=== PATIENT | male | born 1960 | race Caucasian/White ===

== ENCOUNTER 2021-02-07 07:56 | Day surgery (SDC) | payer OTHER ==
[~2021-02-07] VITALS: Ht 188 cm; Wt 104.8 kg
[~2021-02-07 07:56] MED LIST: ASPI81CH PO; ATOR40TA PO; Amlodipine Bes2.5 MG PO; BUPR150ER PO; CYCL10 PO; METO50 PO; SERT100 PO; TRAZ150T57 PO
--- NOTE | 2021-02-07 08:19 | NUR ---
Ambulatory in Day Surgery History, Chart, Medications and Allergies reviewed before start of procedure. Lungs clear T/O to Auscultation. Patient confirms NPO status and agrees with scheduled surgery. Pre-Op teaching done. Pt verbalizes understanding.
--- NOTE | 2021-02-07 13:49 | NUR ---
PATIENT SBA UP TO BR X 2, VOIDED FOR 550ML TOTAL, STEADY ON FEET. TAKING LUNCH W/O C/O. VSS, CONT TO MONITOR.
--- NOTE | 2021-02-07 16:23 | NUR ---
SHIFT SUMMARY PT A&OX4, VSS, S/P ALBARO LAP SPLENIC CYST REMOVAL, 4 LAP SITES DRY/INTACT. DENIES PAIN AT THIS TIME. DANIEL PO INTAKE. VOIDING WELL, URINAL AT BEDSIDE. WILL REPORT TO ONCOMING NOC RN.
[2021-02-08] MEDS ORDERED: HYDR1TAB94 PO (09:38)
--- NOTE | 2021-02-08 11:36 | NUR ---
DISCHARGE SUMMARY PT A&OX4, VSS, WALKED OFF FLOOR (DECLINING WC), WITH ALL PERSONAL POSSESSIONS, TO GO HOME WITH BROTHER IN LAW, INCLUDING DC PACKET AND 1 NORCO SCRIPT. DC INS PROVIDED. PT REP UNDERSTANDING THOSE INSTRUCTIONS INCLUDING STERISTRIPS, OK TO SHOWER, FU WITH SURGEON AND SCHEDULE COLONOSCOPY. IV DC'D X2.
== END 2021-02-08 10:50 | disposition home or self-care (01) ==
LOC: ORSCMMR 07:56 → PRE IP 09:15 → SURS 12:43 → ORSCMMR 02-08 10:50 → SURS 02-08 10:50
PROVIDERS: Surgery
PROC: 07BP4ZZ Excision of Spleen, Percutaneous Endoscopic Approach (ICD-10-PCS; principal; 2021-02-07 09:15)
DX: D73.4 Cyst of spleen (principal); I10 Essential (primary) hypertension; F41.8 Other specified anxiety disorders; F43.10 Post-traumatic stress disorder, unspecified; Z79.82 Long term (current) use of aspirin; Z79.899 Other long term (current) drug therapy; Z87.891 Personal history of nicotine dependence
CPT/HCPCS: 86850; 86900; 86901; 88304; A9270; J0690; J1100; J1885; J2250; J2370; J2405; J2704; J3010; J7120

== ENCOUNTER → 2021-06-16 | Outpatient (CLI) | payer OTHER ==
[~2021-06-16] MED LIST changes: +HYDR1TAB94 PO
[2021-06-18 17:38] LABS: Protein, Urine Quantitative 7.6 mg/dL (0.0-11.9)
[2021-06-18 17:40] LABS: Microalbumin, Urine Quant. 7.2 mg/L (0.000-20.000)
== END | disposition home or self-care (01) ==
LOC: LAB SHORT 10:00 → LAB FUT 06-14 13:55
PROVIDERS: Internal Medicine Nephrology
DX: N18.2 Chronic kidney disease, stage 2 (mild) (principal); D63.1 Anemia in chronic kidney disease; N25.81 Secondary hyperparathyroidism of renal origin; E55.9 Vitamin D deficiency, unspecified; E78.00 Pure hypercholesterolemia, unspecified; R76.9 Abnormal immunological finding in serum, unspecified; R94.5 Abnormal results of liver function studies; R94.6 Abnormal results of thyroid function studies
CPT/HCPCS: 81050; 82043; 84156; 84300

== ENCOUNTER 2021-06-28 08:00 | Day surgery (SDC) | payer OTHER ==
[~2021-06-28] VITALS: Ht 188 cm; Wt 101.0 kg
--- NOTE | 2021-06-28 12:02 | NUR ---
PATIENT RETURNED FROM THE [facility] VIA RECLINER, PLACED ON THE MONITOR, CALL LIGHT IN REACH, TR BAND IN PLACE TO THE RIGHT RADIAL. PLEATH GOOD, NO BLEEDING, NO HEMOTOMA.
[2021-06-28] MEDS ORDERED: CLOP75 PO (12:23)
--- NOTE | 2021-06-28 12:33 | NUR ---
DISCHARGE INSTRUCTIONS GIVEN WITH VERBAL AND WRITTEN UNDERSTANDING. AMBULATED IN [facility]. TOLERATED WELL. NO BLEEDING AT SITE. DRESSING FOR DISCHARGE.
--- NOTE | 2021-06-28 13:25 | NUR ---
BEGAN REMOVEDING AIR FROM THE TR BAND TO THE RIGHT RADIAL. NO BLEEDING NOTED. NO HEMATOMA NOTED.
--- NOTE | 2021-06-28 13:42 | NUR ---
TR BAND FLAT, ALL AIR REMOVED. NO BLEEDING, NO HEMATOMA NOTED. NO PAIN NOTED FROM THE PATIENT. VVS.
--- NOTE | 2021-06-28 14:05 | NUR ---
DISCHARGE REVIEWED WITH PT, VERBALIZES UNDERSTANDING. TR BAND REMOVED FROM R RADIAL SITE, AREA CLEANSED AND CLOTH DOT DRESSING PLACED. PT OFFERED ARM SLING, BUT REFUSES. SALINE LOCK REMOVED WITH CATHETER INTACT. PT TO PRIVATE VEHICLE PER W/C.
== END 2021-06-28 14:05 | disposition home or self-care (01) ==
LOC: MHTC 08:00
DX: I25.10 Atherosclerotic heart disease of native coronary artery without angina pectoris (principal); R94.39 Abnormal result of other cardiovascular function study; I25.2 Old myocardial infarction; I10 Essential (primary) hypertension; Z95.5 Presence of coronary angioplasty implant and graft; Z87.891 Personal history of nicotine dependence; Z79.82 Long term (current) use of aspirin
CPT/HCPCS: 85347; 93005; 93010; 93454; 93571; 99152; 99153; C1769; C1887; C1894; J0461; J1644; J2250; J3010; J7030; J7050; Q9967

== ENCOUNTER → 2021-11-19 | Outpatient (CLI) | payer MEDICARE, OTHER ==
[~2021-11-19] MED LIST changes: +CLOP75 PO
[2021-11-20 16:33] LABS: Creatinine Urine 95.2 mg/dL (27.00-270.00); Protein, Urine Quantitative 7.7 mg/dL (0.0-11.9)
[2021-11-20 16:35] LABS: Microalbumin, Urine Quant. 6.76 mg/L (0.000-20.000)
== END | disposition home or self-care (01) ==
LOC: LAB SHORT 05:30 → LAB FUT 11-15 15:25
PROVIDERS: Internal Medicine Nephrology
DX: N18.30 Chronic kidney disease, stage 3 unspecified (principal); D63.1 Anemia in chronic kidney disease; N13.30 Unspecified hydronephrosis; R76.9 Abnormal immunological finding in serum, unspecified; R94.5 Abnormal results of liver function studies; R94.6 Abnormal results of thyroid function studies
CPT/HCPCS: 81050; 82043; 82570; 84156

== ENCOUNTER → 2022-11-29 | Outpatient (CLI) | payer MEDICARE, OTHER ==
[2022-11-29 17:27] LABS: BASOPHILS ABSOLUTE AUTO 0.08 K/mm3 (0.00-0.23); BASOPHILS PERCENT AUTO 1 % (0-2); EOSINOPHILS PERCENT AUTO 2 % (0-6); Hematocrit 42.5 % (37.0-53.0); Hemoglobin 14.7 g/dL (13.5-17.5); IMMATURE GRAN ABSOLUTE AUTO 0.02 K/mm3 (0.00-0.10); IMMATURE GRAN PERCENT AUTO 0 % (0-1); LYMPHOCYTES ABSOLUTE AUTO 2.96 K/mm3 (0.84-5.20); LYMPHOCYTES PERCENT AUTO 46 % (21-46); MONOCYTES ABSOLUTE AUTO 0.56 K/mm3 (0.16-1.47); MONOCYTES PERCENT AUTO 9 % (4-13); Mean Corpuscular HGB 27.6 pg (26.0-34.0); Mean Corpuscular HGB Conc 34.6 g/dL (31.5-36.5); Mean Corpuscular Volume 80 fL (80-100); Mean Platelet Volume 10.2 fL (9.1-12.4); NEUTROPHILS ABSOLUTE AUTO 2.72 K/mm3 (1.96-9.15); NEUTROPHILS PERCENT AUTO 42 % (41-73); Platelet Count 190 K/mm3 (150-400); RDW Coefficient Variation 14.4 % (11.7-14.2); RDW Standard Deviation 41.1 fL (35.1-46.3); Red Blood Cell Count 5.33 M/mm3 (4.30-5.90); White Blood Cell Count 6.44 K/mm3 (4.00-11.30)
[2022-11-29 17:35] LABS: Albumin, Blood 3.9 g/dL (3.4-5.0); Bilirubin, Total 1.1 mg/dL (0.1-1.0); Bun/Creatinine Ratio 8.8 (12.0-20.0); Calcium, Blood 9.5 mg/dL (8.5-10.1); Creatinine, Blood 1.47 mg/dL (0.60-1.20); Globulin, Blood 3.8 g/dL (2.2-4.0); Potassium, Blood 3.6 mmol/L (3.5-5.5); Total Protein, Blood 7.7 g/dL (6.4-8.2)
== END | disposition home or self-care (01) ==
LOC: LAB SHORT 17:19 → LAB 17:19
PROVIDERS: Chiropractor
DX: R07.89 Other chest pain (principal)
CPT/HCPCS: 80053; 84484; 85025

== ENCOUNTER 2023-08-19 07:26 | Day surgery (SDC) | payer MEDICARE, OTHER ==
[2023-08-19] VITALS (26 sets, daily range): BP systolic 145–228; BP diastolic 83–143
[~2023-08-19] VITALS: Ht 188 cm; Wt 107.0 kg
[~2023-08-19 07:26] MED LIST changes: +GABA300 PO; +LOSA25; +LOSA25 PO; +Lactated Ringer's 1,000 ML IV SCH; +OMEP20ER PO; +PANT40 PO; +TAMS.4ER PO
[2023-08-19] MEDS ORDERED: propofoL 20 ML IV ONE ×2 (08:37→09:08)
--- NOTE | 2023-08-19 08:49 | NUR ---
08/19/23 0849 Kory Bennett HISTORY, CHART, MEDICATIONS AND ALLERGIES REVIEWED BEFORE START OF PROCEDURE. PATIENT CONFIRMS NPO STATUS AND AGREES WITH SCHEDULED PROCEDURE. 3-LEAD EKG REVIEWED WITH PHYSICIAN PRIOR TO START OF PROCEDURE. MONITOR INTACT WITH CONTINUOUS PULSE OXIMETRY,CAPNOGRAPHY, 3-LEAD EKG, INTERMITTENT BP. SUPPLEMENTAL O2 TO BE TITRATED THROUGHOUT PROCEDURE TO MAINTAIN O2 SATURATION ABOVE 90%. PATIENT DETERMINED TO BE ASA APPROPRIATE FOR PROPOFOL SEDATION PRIOR TO START OF PROCEDURE BY DR. VEGA.
[2023-08-19] MEDS ORDERED: Midazolam HCl 1MG / ML 2ML Vial ONE (08:59)
--- NOTE | 2023-08-19 09:45 | NUR ---
WARM BLANKET GIVEN TO PUT ON ABD.
--- NOTE | 2023-08-19 09:50 | NUR ---
PO FLUIDS GIVEN.
--- NOTE | 2023-08-19 09:59 | NUR ---
PT TOLERATING PO FLUDIS WELL. PT STATES WARM BLANKET SEEMS TO BE HELPING REDUCE HIS ABD PAIN.
--- NOTE | 2023-08-19 10:13 | NUR ---
Discharge instructions reviewed with patient. Patient verbalizes understanding. Copy given to patient to take home. Patient States Post-Procedure ride home has been arranged.
--- NOTE | 2023-08-19 10:27 | NUR ---
Discharge instructions reviewed with patient. Patient verbalizes understanding. Copy given to patient to take home. PT UP TO GET DRESSED, BELCHED AIR. PT REPORT 4/10 PAIN NOW, ENCOURAGED PT TO DRINK WARM FLUIDS AND LIGHT MOVEMENT TO HELP AIR PASS THROUGH RECTUM. Discharged via wheelchair to private car for ride home.
== END 2023-08-19 10:31 | disposition home or self-care (01) ==
LOC: ORSCMMR 07:26 → ORD 08:30 → ORSCMMR 08:30
PROVIDERS: Internal Medicine Gastroenterology
PROC: 0DBN8ZX Excision of Sigmoid Colon, Via Natural or Artificial Opening Endoscopic, Diagnostic (ICD-10-PCS; principal; 2023-08-19 08:30)
PROC: 0DBK8ZX Excision of Ascending Colon, Via Natural or Artificial Opening Endoscopic, Diagnostic (ICD-10-PCS; principal; 2023-08-19 08:30)
PROC: 0DBL8ZX Excision of Transverse Colon, Via Natural or Artificial Opening Endoscopic, Diagnostic (ICD-10-PCS; principal; 2023-08-19 08:30)
DX: Z12.11 Encounter for screening for malignant neoplasm of colon (principal); R19.5 Other fecal abnormalities; D12.3 Benign neoplasm of transverse colon; D12.2 Benign neoplasm of ascending colon; D12.5 Benign neoplasm of sigmoid colon; K57.30 Diverticulosis of large intestine without perforation or abscess without bleeding; I25.10 Atherosclerotic heart disease of native coronary artery without angina pectoris; I25.2 Old myocardial infarction; N40.0 Benign prostatic hyperplasia without lower urinary tract symptoms; Z79.899 Other long term (current) drug therapy; Z87.891 Personal history of nicotine dependence; Z79.82 Long term (current) use of aspirin
CPT/HCPCS: 88305; J2250; J2704; J7120

== ENCOUNTER → 2024-01-23 | Outpatient (CLI) | payer MEDICARE ==
[~2024-01-23] MED LIST changes: -Lactated Ringer's 1,000 ML IV SCH
[2024-01-23 19:16] LABS: Bun/Creatinine Ratio 9.4 (12.0-20.0); Calcium, Blood 8.7 mg/dL (8.5-10.1); Creatinine, Blood 1.27 mg/dL (0.60-1.20); Potassium, Blood 3.9 mmol/L (3.5-5.5)
== END ==
LOC: LAB 16:43 → LAB SHORT 16:43
PROVIDERS: Family Medicine
DX: E11.9 Type 2 diabetes mellitus without complications (principal)
CPT/HCPCS: 80048

== ENCOUNTER → 2024-02-24 | Outpatient (CLI) | payer MEDICARE ==
[2024-02-24 14:32] LABS: BASOPHILS ABSOLUTE AUTO 0.09 K/mm3 (0.00-0.23); BASOPHILS PERCENT AUTO 1 % (0-2); EOSINOPHILS ABSOLUTE AUTO 0.03 K/mm3 (0.00-0.68); EOSINOPHILS PERCENT AUTO 0 % (0-6); Hematocrit 47.5 % (37.0-53.0); Hemoglobin 16.4 g/dL (13.5-17.5); IMMATURE GRAN ABSOLUTE AUTO 0.05 K/mm3 (0.00-0.10); IMMATURE GRAN PERCENT AUTO 1 % (0-1); LYMPHOCYTES ABSOLUTE AUTO 2.99 K/mm3 (0.84-5.20); LYMPHOCYTES PERCENT AUTO 31 % (21-46); MONOCYTES ABSOLUTE AUTO 0.87 K/mm3 (0.16-1.47); MONOCYTES PERCENT AUTO 9 % (4-13); Mean Corpuscular HGB 26.9 pg (26.0-34.0); Mean Corpuscular HGB Conc 34.5 g/dL (31.5-36.5); Mean Corpuscular Volume 78 fL (80-100); Mean Platelet Volume 9.8 fL (9.1-12.4); NEUTROPHILS ABSOLUTE AUTO 5.51 K/mm3 (1.96-9.15); NEUTROPHILS PERCENT AUTO 58 % (41-73); Platelet Count 202 K/mm3 (150-400); RDW Coefficient Variation 14.6 % (11.7-14.2); RDW Standard Deviation 40.1 fL (35.1-46.3); Red Blood Cell Count 6.09 M/mm3 (4.30-5.90); White Blood Cell Count 9.54 K/mm3 (4.00-11.30)
[2024-02-24 14:41] LABS: Albumin, Blood 4.5 g/dL (3.4-5.0); Bilirubin, Total 1.6 mg/dL (0.1-1.0); Calcium, Blood 9.8 mg/dL (8.5-10.1); Creatinine, Blood 1.85 mg/dL (0.60-1.20); Globulin, Blood 4.3 g/dL (2.2-4.0); Potassium, Blood 3.9 mmol/L (3.5-5.5); Total Protein, Blood 8.8 g/dL (6.4-8.2)
== END | disposition home or self-care (01) ==
LOC: LAB SHORT 14:25 → LAB 14:25
PROVIDERS: Family Medicine
DX: R10.84 Generalized abdominal pain (principal)
CPT/HCPCS: 80053; 83690; 85025

== ENCOUNTER 2024-09-23 07:56 | Day surgery (SDC) | payer MEDICARE ==
[2024-09-23] VITALS (32 sets, daily range): BP systolic 115–179; BP diastolic 72–152
[~2024-09-23] VITALS: Ht 188 cm; Wt 96.0 kg
[~2024-09-23 07:56] MED LIST changes: +Lactated Ringer's 1,000 ML IV SCH
[2024-09-23] MEDS ORDERED: Ondansetron HCl 2 MG / ML 2ML Vial IV ONE (08:45)
--- NOTE | 2024-09-23 08:54 | NUR ---
0815 PT ARRIVED TO [facility] W[facility] BOTTLE IN HAND. PT STATES HE DRANK APPROX [address] VEGA NOTIFIOED PT DELAYED FOR 2 HRS NOW PER NPO GUIDLINES.
[2024-09-23] MEDS ORDERED: propofoL 40 ML IV ONE (09:57)
[2024-09-23] MEDS ORDERED: Midazolam HCl 1MG / ML 2ML Vial ONE ×2 (09:58→10:34)
--- NOTE | 2024-09-23 10:03 | NUR ---
09/23/24 Steve3 Faith Parry CONFIRMED AND REVIEWED H&P, MEDCICATIONS, ALLERGIES, MEDICAL HISTORY, RESPIRATORY HISTORY, VITAL SIGNS, 3-LEAD EKG, CONSENTS, AND PHYSICIAN ORDERS. PATIENT CONFIRMS NPO STATUS AND AGREES WITH SCHEDULED PROCEDURE. MONITOR INTACT WITH CONTINUOUS PULSE OXIMETRY, CAPNOGRAPHY, 3-LEAD EKG, INTERMITTENT BP. SUPPLEMENTAL O2 TO BE TITRATED THROUGHOUT PROCEDURE TO MAINTAIN O2 SATURATION ABOVE 90%. PATIENT DETERMINED TO BE ASA APPROPRIATE FOR PROPOFOL SEDATION PRIOR TO START OF PROCEDURE BY .MALLAMPATI CLASS 2 AIRWAY: COMPLETE VISUALIZATION OF THE UVULA.
[2024-09-23] MEDS ORDERED: propofoL 20 ML IV ONE ×2 (10:34→10:48)
--- NOTE | 2024-09-23 11:22 | NUR ---
Discharge instructions reviewed with patient. Patient verbalizes understanding. Copy given to patient to take home. Patient States Post-Procedure ride home has been arranged. Discharged via wheelchair to private car for ride home.
== END 2024-09-23 11:24 | disposition home or self-care (01) ==
LOC: ORSCMMR 07:56 → ORD 09:00 → ORSCMMR 09:00
PROVIDERS: Internal Medicine Gastroenterology
PROC: 0DBM8ZX Excision of Descending Colon, Via Natural or Artificial Opening Endoscopic, Diagnostic (ICD-10-PCS; principal; 2024-09-23 09:00)
PROC: 0DBK8ZX Excision of Ascending Colon, Via Natural or Artificial Opening Endoscopic, Diagnostic (ICD-10-PCS; principal; 2024-09-23 09:00)
PROC: 0DBL8ZX Excision of Transverse Colon, Via Natural or Artificial Opening Endoscopic, Diagnostic (ICD-10-PCS; principal; 2024-09-23 09:00)
DX: Z12.11 Encounter for screening for malignant neoplasm of colon (principal); Z86.0101 Personal history of adenomatous and serrated colon polyps; D12.3 Benign neoplasm of transverse colon; D12.2 Benign neoplasm of ascending colon; D12.4 Benign neoplasm of descending colon; K57.30 Diverticulosis of large intestine without perforation or abscess without bleeding; N40.0 Benign prostatic hyperplasia without lower urinary tract symptoms; Z87.891 Personal history of nicotine dependence; I25.10 Atherosclerotic heart disease of native coronary artery without angina pectoris; K21.9 Gastro-esophageal reflux disease without esophagitis; E78.00 Pure hypercholesterolemia, unspecified; I10 Essential (primary) hypertension; Z79.899 Other long term (current) drug therapy
CPT/HCPCS: 88305; J2250; J2405; J2704; J7120

== ENCOUNTER → 2024-11-12 | Outpatient (CLI) | payer MEDICARE ==
[~2024-11-12] MED LIST changes: -Lactated Ringer's 1,000 ML IV SCH
[2024-11-12 16:37] LABS: CHOL/HDL RATIO 3.3; Cholesterol 113 mg/dL (50-200); HDL Cholesterol 34 mg/dL (>39); LDL/HDL RATIO 1.4; Low Density Lipoprotein Chol 47 mg/dL (0-110); Triglycerides 160 mg/dL (30-160); Very Low Density Lipoprot Chol 32 mg/dL (6-32)
[2024-11-12 16:46] LABS: Alanine Aminotransfer (ALT/SGP 35 U/L (12-78); Albumin, Blood 3.9 g/dL (3.4-5.0); Albumin/Globulin Ratio 1.1 (0.8-1.8); Alk Phos 64 U/L (50-136); Anion Gap 8 mmol/L (3-11); Aspartate Aminotrans (AST/SGOT 19 U/L (12-37); Bilirubin, Total 1.5 mg/dL (0.1-1.0); Blood Urea Nitrogen 17 mg/dL (8-24); Bun/Creatinine Ratio 13.3 (12.0-20.0); CO2, Blood 25 mmol/L (21-32); Calcium, Blood 9.3 mg/dL (8.5-10.1); Chloride, Blood 108 mmol/L (98-108); Creatinine, Blood 1.28 mg/dL (0.60-1.20); Globulin, Blood 3.4 g/dL (2.2-4.0); Glomerular Filtration Rate 62 (60-); Glucose, Blood 150 mg/dL (70-99); Potassium, Blood 3.8 mmol/L (3.5-5.5); Prostate Specific Antigen 0.154 ng/mL (0.000-4.000); Sodium, Blood 137 mmol/L (136-145); Total Protein, Blood 7.3 g/dL (6.4-8.2)
== END ==
LOC: LAB 14:57 → LAB SHORT 14:57
PROVIDERS: Family Medicine
DX: E78.2 Mixed hyperlipidemia (principal); I12.9 Hypertensive chronic kidney disease with stage 1 through stage 4 chronic kidney disease, or unspecified chronic kidney disease; Z12.5 Encounter for screening for malignant neoplasm of prostate
CPT/HCPCS: 80053; 80061; G0103

== ENCOUNTER 2025-06-15 21:29 | Emergency (ER) | payer MEDICARE ==
[~2025-06-15] VITALS: Ht 188 cm; Wt 97.1 kg
[~2025-06-15 21:29] MED LIST changes: +AMLO5 PO; -ASPI81CH PO; -Amlodipine Bes2.5 MG PO; +Aspir 8181 MG PO; -LOSA25; -METO50 PO; +METO50ER PO
[2025-06-15] MEDS ORDERED: Ondansetron HCl 2 MG / ML 2ML Vial IV ONE (22:00)
[2025-06-15 22:15] LABS: BASOPHILS ABSOLUTE AUTO 0.07 K/mm3 (0.00-0.23); BASOPHILS PERCENT AUTO 1 % (0-2); EOSINOPHILS ABSOLUTE AUTO 0.12 K/mm3 (0.00-0.68); EOSINOPHILS PERCENT AUTO 2 % (0-6); Hematocrit 41.8 % (37.0-53.0); Hemoglobin 13.6 g/dL (13.5-17.5); IMMATURE GRAN ABSOLUTE AUTO 0.00 K/mm3 (0.00-0.10); IMMATURE GRAN PERCENT AUTO 0 % (0-1); LYMPHOCYTES ABSOLUTE AUTO 2.48 K/mm3 (0.84-5.20); LYMPHOCYTES PERCENT AUTO 42 % (21-46); MONOCYTES ABSOLUTE AUTO 0.43 K/mm3 (0.16-1.47); MONOCYTES PERCENT AUTO 7 % (4-13); Mean Corpuscular HGB Conc 32.5 g/dL (31.5-36.5); Mean Corpuscular Volume 82 fL (80-100); NEUTROPHILS ABSOLUTE AUTO 2.76 K/mm3 (1.96-9.15); NEUTROPHILS PERCENT AUTO 47 % (41-73); NRBC ABSOLUTE 0.00 K/mm3 (0.00-0.02); NRBC Auto 0.0 /100 WBC (0.0-0.2); Platelet Count 176 K/mm3 (150-400); RDW Coefficient Variation 14.1 % (11.7-14.2); RDW Standard Deviation 41.6 fL (35.1-46.3)
[2025-06-15 22:35] LABS: Alanine Aminotransfer (ALT/SGP 31.0 U/L (12-78); Albumin, Blood 3.8 g/dL (3.4-5.0); Albumin/Globulin Ratio 1.2 (0.8-1.8); Anion Gap 9.0 mmol/L (3-11); Aspartate Aminotrans (AST/SGOT 19.0 U/L (12-37); Bilirubin, Total 1.5 mg/dL (0.1-1.0); Blood Urea Nitrogen 13.0 mg/dL (8-24); CO2, Blood 25.0 mmol/L (21-32); Calcium, Blood 9.1 mg/dL (8.5-10.1); Chloride, Blood 108.0 mmol/L (98-108); Creatinine, Blood 1.53 mg/dL (0.60-1.20); Globulin, Blood 3.3 g/dL (2.2-4.0); Glucose, Blood 111.0 mg/dL (70-99); Potassium, Blood 4.0 mmol/L (3.5-5.5); Sodium, Blood 138.0 mmol/L (136-145); Total Protein, Blood 7.1 g/dL (6.4-8.2)
[2025-06-15 23:45] LABS: Source, Urine Clean Catch
[2025-06-15 23:49] LABS: Bilirubin, Urine Neg (Neg); Color, Urine Yellow (P-Yellow); Glucose Qualitative, Urine Neg (Neg); Ketones, Urine Neg (Neg); Leukocyte Esterase, Urine Neg (Neg); Protein, Urine Neg (Neg); Specific Gravity, Urine 1.015 (1.003-1.022); Urobilinogen, Urine 1+ (Normal)
[2025-06-16 01:07] VITALS: BP 166/98
== END 2025-06-16 02:08 | disposition home or self-care (01) ==
LOC: ER 21:29
PROVIDERS: Student in an Organized Health Care Education/Training Program
DX: R10.A1 Flank pain, right side (principal); K80.20 Calculus of gallbladder without cholecystitis without obstruction; R10.31 Right lower quadrant pain; I25.10 Atherosclerotic heart disease of native coronary artery without angina pectoris; Z87.891 Personal history of nicotine dependence; Z79.82 Long term (current) use of aspirin; Z79.899 Other long term (current) drug therapy
CPT/HCPCS: 74177; 80053; 81003; 83690; 85025; 99284-25; Q9967

== ENCOUNTER 2025-06-19 11:57 | Inpatient (IN) | payer MEDICARE ==
[~2025-06-19] VITALS: Ht 188 cm; Wt 97.1 kg
[2025-06-19] MEDS ORDERED: Ketorolac Tromethamine 15mg Vial IV ONE (12:35)
[2025-06-19] MEDS ORDERED: Ondansetron HCl 2 MG / ML 2ML Vial IV ONE (12:40)
[2025-06-19 13:03] LABS: BASOPHILS ABSOLUTE AUTO 0.04 K/mm3 (0.00-0.23); BASOPHILS PERCENT AUTO 1 % (0-2); EOSINOPHILS ABSOLUTE AUTO 0.07 K/mm3 (0.00-0.68); EOSINOPHILS PERCENT AUTO 2 % (0-6); Hematocrit 41.9 % (37.0-53.0); Hemoglobin 13.6 g/dL (13.5-17.5); IMMATURE GRAN ABSOLUTE AUTO 0.01 K/mm3 (0.00-0.10); IMMATURE GRAN PERCENT AUTO 0 % (0-1); LYMPHOCYTES ABSOLUTE AUTO 1.49 K/mm3 (0.84-5.20); LYMPHOCYTES PERCENT AUTO 31 % (21-46); MONOCYTES ABSOLUTE AUTO 0.26 K/mm3 (0.16-1.47); MONOCYTES PERCENT AUTO 6 % (4-13); Mean Corpuscular HGB Conc 32.5 g/dL (31.5-36.5); Mean Corpuscular Volume 84 fL (80-100); NEUTROPHILS ABSOLUTE AUTO 2.88 K/mm3 (1.96-9.15); NEUTROPHILS PERCENT AUTO 61 % (41-73); NRBC ABSOLUTE 0.00 K/mm3 (0.00-0.02); NRBC Auto 0.0 /100 WBC (0.0-0.2); Platelet Count 160 K/mm3 (150-400); RDW Coefficient Variation 14.0 % (11.7-14.2); RDW Standard Deviation 42.9 fL (35.1-46.3)
[2025-06-19 14:13] LABS: Alanine Aminotransfer (ALT/SGP 56.0 U/L (12-78); Albumin, Blood 3.7 g/dL (3.4-5.0); Albumin/Globulin Ratio 1.1 (0.8-1.8); Anion Gap 10.0 mmol/L (3-11); Aspartate Aminotrans (AST/SGOT 76.0 U/L (12-37); Bilirubin, Total 1.5 mg/dL (0.1-1.0); Blood Urea Nitrogen 12.0 mg/dL (8-24); CO2, Blood 23.0 mmol/L (21-32); Calcium, Blood 8.8 mg/dL (8.5-10.1); Chloride, Blood 110.0 mmol/L (98-108); Creatinine, Blood 1.42 mg/dL (0.60-1.20); Globulin, Blood 3.3 g/dL (2.2-4.0); Glucose, Blood 121.0 mg/dL (70-99); Potassium, Blood 3.7 mmol/L (3.5-5.5); Sodium, Blood 139.0 mmol/L (136-145); Total Protein, Blood 7.0 g/dL (6.4-8.2)
[2025-06-19 14:39] LABS: Source, Urine Clean Catch
[2025-06-19 14:41] LABS: Color, Urine Yellow (P-Yellow); Glucose Qualitative, Urine Neg (Neg); Ketones, Urine Neg (Neg); Leukocyte Esterase, Urine Neg (Neg); Protein, Urine 2+ (Neg); Specific Gravity, Urine 1.025 (1.003-1.022); Urobilinogen, Urine 2+ (Normal)
[2025-06-19 15:04] LABS: Bilirubin, Urine 1+ (Neg)
[2025-06-19 15:10] LABS: Red Blood Cells, Urine 0-2 /hpf (0-2); White Blood Cells, Urine 0-2 /hpf (0-5)
[2025-06-19] MEDS ORDERED: NS 1,000 ML IV SCH (15:55)
[2025-06-19] MEDS ORDERED: Ondansetron HCl 2 MG / ML 2ML Vial IV PRN (16:00)
[2025-06-19] MEDS ORDERED: Morphine Sulfate 4 MG/1 ML Injection IV PRN (16:00)
[2025-06-19] MEDS ORDERED: Ketorolac Tromethamine 30mg Vial IV PRN (16:10)
[2025-06-19] MEDS ORDERED: FLU VACC TS2025(65UP)/MF59C/PF 45 MCG/0.5 ML SYRINGE IM SCH (16:10)
[2025-06-19] MEDS ORDERED: HydrALAZINE HCl 20 MG / ML 1ML Vial IV PRN (17:30)
--- NOTE | 2025-06-19 17:42 | NUR ---
1710-REPORT FROM ER RECIEVED REPORT FROM STEVE GAY.
[2025-06-19 18:14] VITALS: BP 180/107
[2025-06-19 18:17] VITALS: BP 166/79
[2025-06-19 19:20] VITALS: BP 158/71
[2025-06-19 19:21] VITALS: BP 158/71
[2025-06-20 04:38] VITALS: BP 162/84
[2025-06-20 06:35] LABS: BASOPHILS ABSOLUTE AUTO 0.04 K/mm3 (0.00-0.23); BASOPHILS PERCENT AUTO 1 % (0-2); EOSINOPHILS ABSOLUTE AUTO 0.04 K/mm3 (0.00-0.68); EOSINOPHILS PERCENT AUTO 1 % (0-6); Hematocrit 40.8 % (37.0-53.0); Hemoglobin 13.2 g/dL (13.5-17.5); IMMATURE GRAN ABSOLUTE AUTO 0.01 K/mm3 (0.00-0.10); IMMATURE GRAN PERCENT AUTO 0 % (0-1); LYMPHOCYTES ABSOLUTE AUTO 0.79 K/mm3 (0.84-5.20); LYMPHOCYTES PERCENT AUTO 14 % (21-46); MONOCYTES ABSOLUTE AUTO 0.39 K/mm3 (0.16-1.47); MONOCYTES PERCENT AUTO 7 % (4-13); Mean Corpuscular HGB Conc 32.4 g/dL (31.5-36.5); Mean Corpuscular Volume 83 fL (80-100); NEUTROPHILS ABSOLUTE AUTO 4.48 K/mm3 (1.96-9.15); NEUTROPHILS PERCENT AUTO 78 % (41-73); NRBC ABSOLUTE 0.00 K/mm3 (0.00-0.02); NRBC Auto 0.0 /100 WBC (0.0-0.2); Platelet Count 156 K/mm3 (150-400); RDW Coefficient Variation 14.1 % (11.7-14.2); RDW Standard Deviation 42.7 fL (35.1-46.3)
[2025-06-20 07:04] LABS: Alanine Aminotransfer (ALT/SGP 134.0 U/L (12-78); Albumin, Blood 3.5 g/dL (3.4-5.0); Albumin/Globulin Ratio 1.0 (0.8-1.8); Anion Gap 9.0 mmol/L (3-11); Aspartate Aminotrans (AST/SGOT 85.0 U/L (12-37); Bilirubin, Total 2.4 mg/dL (0.1-1.0); Blood Urea Nitrogen 10.0 mg/dL (8-24); CO2, Blood 24.0 mmol/L (21-32); Calcium, Blood 8.9 mg/dL (8.5-10.1); Chloride, Blood 106.0 mmol/L (98-108); Creatinine, Blood 1.35 mg/dL (0.60-1.20); Globulin, Blood 3.5 g/dL (2.2-4.0); Glucose, Blood 94.0 mg/dL (70-99); Potassium, Blood 3.7 mmol/L (3.5-5.5); Sodium, Blood 135.0 mmol/L (136-145); Total Protein, Blood 7.0 g/dL (6.4-8.2)
[2025-06-20 07:41] VITALS: BP 153/77
--- NOTE | 2025-06-20 08:30 | NUR ---
MR. MCCORD IS AOX4, FRIENDLY, AND IN GOOD SPIRITS. HE IS INDEPENDENT IN HIS ROOM AND AMBULATES UNASSISTED TO/FROM BR NEEDED. HE USES THE CALL LIGHT APPROPRIATELY AND CLEARLY COMMUNICATES HIS NEEDS. HE REPORTED MODERATE HEADACHE PAIN AND REQUESTED TORADOL FOR RELIEF AT APPROXIMATELY 2300 HRS. NO ACUTE EVENTS THIS SHIFT. PT CURRENTLY ASLEEP. BEDSIDE TABLE, CALL LIGHT, AND CELL PHONE WITHIN REACH.
[2025-06-20] MEDS ORDERED: Enoxaparin 40 MG/0.4 ML SYR SC SCH (09:00)
--- NOTE | 2025-06-20 14:52 | NUR ---
SUMMARY- MD JONES GAVE VERBAL TO CHANGE DIET ORDER TO CLEAR LIQUIDS.
[2025-06-20 16:36] VITALS: BP 147/82
--- NOTE | 2025-06-20 17:39 | NUR ---
SUMMARY- AAOX4. ON RA. MINIMAL COMPLAINTS OF ABD PAIN THIS SHIFT-TORADOL HELPED DECREASE PAIN TO TOLERABLE LEVEL. PT TOLERATING CLEAR LIQUID DIET W/O ISSUES. PT IS IND IN ROOM. NO ACUTE EVENTS THIS SHIFT.
[2025-06-20] MEDS ORDERED: BUPROPION XL150 M1 PO (19:05)
[2025-06-20] MEDS ORDERED: ZOLOFT10013 PO (19:09)
[2025-06-20 19:36] VITALS: BP 166/78
[2025-06-21] VITALS (16 sets, daily range): BP systolic 147–183; BP diastolic 67–86
[2025-06-21 05:15] LABS: Hematocrit 36.1 % (37.0-53.0); Hemoglobin 11.8 g/dL (13.5-17.5); Mean Corpuscular HGB Conc 32.7 g/dL (31.5-36.5); Mean Corpuscular Volume 83 fL (80-100); NRBC ABSOLUTE 0.00 K/mm3 (0.00-0.02); NRBC Auto 0.0 /100 WBC (0.0-0.2); Platelet Count 142 K/mm3 (150-400); RDW Coefficient Variation 14.0 % (11.7-14.2); RDW Standard Deviation 42.4 fL (35.1-46.3)
[2025-06-21 05:39] LABS: Alanine Aminotransfer (ALT/SGP 97.0 U/L (12-78); Albumin, Blood 2.9 g/dL (3.4-5.0); Albumin/Globulin Ratio 0.9 (0.8-1.8); Anion Gap 7.0 mmol/L (3-11); Aspartate Aminotrans (AST/SGOT 46.0 U/L (12-37); Bilirubin, Total 1.9 mg/dL (0.1-1.0); Blood Urea Nitrogen 8.0 mg/dL (8-24); CO2, Blood 26.0 mmol/L (21-32); Calcium, Blood 8.8 mg/dL (8.5-10.1); Chloride, Blood 110.0 mmol/L (98-108); Creatinine, Blood 1.39 mg/dL (0.60-1.20); Globulin, Blood 3.3 g/dL (2.2-4.0); Glucose, Blood 84.0 mg/dL (70-99); Potassium, Blood 3.8 mmol/L (3.5-5.5); Sodium, Blood 139.0 mmol/L (136-145); Total Protein, Blood 6.2 g/dL (6.4-8.2)
--- NOTE | 2025-06-21 06:22 | NUR ---
SHIFT SUMMARY: PT IS AOX4, MOVES ALL EXTREMITIES WELL, ANALYSIS LEAD=X4, PUPILS ARE EQUAL ROUND AND REACTIVE TO LIGHT. PERIPHERAL PULSES PALPABLE, CAP REFILL < 3 SECONDS, NO EDEMA OBSERVED. BILATERAL BREATH SOUNDS CLEAR TO AUSCULTATION, EVEN AND UNLABORED. NO SHORTNESS OF BREATH OBSERVED. BOWEL TONES PRESENT X4, ABDOMEN MILDLY DISTENDED, PT REPORTED AMDOMENAL TENDERNESS AND PAIN 4/10, TREATED PER EMAR. PT IS CONTINENT, NO BLADDER DISTENTION OBSERVED, AND AMBULATES TO THE BR INDEPENDENTLY. SKIN APPEARANCE APPROPRIATE FOR ETHNICITY AND IS WARM, DRY, AND INTACT. PT HAS BEEN COOPERATIVE AND FRIENDLY THIS SHIFT WITH NO ACUTE EVENTS. HE IS CURRENTLY RESTING IN BED WITH THE LIGHTS OFF, BEDSIDE TABLE, CELL PHONE, AND CALL LIGHT WITHIN REACH.
[2025-06-21] MEDS ORDERED: FentaNYL Citrate 50 MCG/ML 2 ML Injection IV PRN ×3 (09:45→09:50)
[2025-06-21] MEDS ORDERED: Sugammadex Sodium 200 MG/2ML SDV (100 MG/ML) ONE (09:45)
[2025-06-21] MEDS ORDERED: FentaNYL Citrate 50 MCG/ML 2 ML Injection ONE ×2 (09:45→12:57)
[2025-06-21] MEDS ORDERED: Rocuronium Bromide 10 MG/ML 5ML Injection IV ONE ×2 (09:46→11:31)
[2025-06-21] MEDS ORDERED: Dexamethasone Sod Phos 10 MG/ML 1ML VIAL ONE (09:46)
[2025-06-21] MEDS ORDERED: Ondansetron HCl 2 MG / ML 2ML Vial ONE (09:46)
[2025-06-21] MEDS ORDERED: Metoclopramide HCl 5MG / ML 2ML Vial IV PRN (09:50)
[2025-06-21] MEDS ORDERED: Ondansetron HCl 2 MG / ML 2ML Vial IV PRN (09:50)
[2025-06-21] MEDS ORDERED: HYDROmorphone HCl/Pf 1MG SYR IV PRN (09:50)
[2025-06-21] MEDS ORDERED: Midazolam HCl 1MG / ML 2ML Vial IV PRN (09:50)
[2025-06-21] MEDS ORDERED: CefOXitin Sodium 2,000 MG in NS 100 ML IV SCH (10:30)
--- NOTE | 2025-06-21 10:31 | NUR ---
PT TRANSPORTED TO [facility]. AGREES WITH PLANNED SURGERY. LUNG SOUNDS CLEAR. HR MID 40'S, DENIES SOB OR CP. EKG DONE PER DR. FERNANDES (ANESTHESIA) ORDER.
[2025-06-21] MEDS ORDERED: Bupivacaine 0.5% HCl 5 MG/ML 30MLVIAL ONE (10:42)
[2025-06-21] MEDS ORDERED: Glycopyrrolate 0.2 MG/ML 5ML VIAL ONE (11:00)
[2025-06-21] MEDS ORDERED: ePHEDrine Sulfate 50 MG/ML 1ML Injection ONE (11:17)
[2025-06-21] MEDS ORDERED: HYDROcodone 5-APAP 325 TAB PO PRN (12:35)
--- NOTE | 2025-06-21 12:43 | NUR ---
ASSUMED CARE PT IS A/O LAYING QUIETLY IN BED PAIN IS MINIMAL. PT AWAITING POSSIBLE SX THIS MORNING. MD IN AT 8AM SURGERY ORDERED FOR LATE MORNING TODAY. PT REMAINS NPO, IV FLUIDS INFUSING. M
--- NOTE | 2025-06-21 12:44 | NUR ---
1000 PT TAKEN FOR SX
--- NOTE | 2025-06-21 13:53 | NUR ---
1320 BACK FROM SX PT IS BACK AWAKE ALERT WITH MINIMAL PAIN STAB SITES X5 CDI. ADVANCED DIET TO CLR LIQ.
--- NOTE | 2025-06-21 21:14 | NUR ---
CALLED HOSPITALIST REGARDING FLUID ORDER DUE TO PT HAVING ELEVATED BLOOD PRESSURES, H/O CHF, AND PT IS EATING AND DRINKING WELL AFTER SURGERY. PER HOSPTIALIST CONTINUE FLUIDS AT THIS TIME.
[2025-06-22 02:28] VITALS: BP 147/82
--- NOTE | 2025-06-22 04:39 | NUR ---
SHIFT SUMMARY A&OX4. ABLE TO MAKE NEEDS KNOWN. TOLERATING FOOD AND DRINK WELL. LR RUNNING AT 150 MLS/HR. LEFT AC IV LEAKING AND REMOVED. NEW IV INSERTED IN RIGHT UPPER ARM. PT TOLERATED WELL. PT HAS HAD SOME INTERMITTENT PAIN AND HAS BEEN MEDICATED PER EMAR. CURRENTLY PT IS RESTING IN BED AT LOWEST POSITION WITH CALL LIGHT WITHIN REACH.
[2025-06-22 05:07] VITALS: BP 154/75
[2025-06-22 05:12] LABS: Alanine Aminotransfer (ALT/SGP 87.0 U/L (12-78); Albumin, Blood 3.0 g/dL (3.4-5.0); Albumin/Globulin Ratio 0.9 (0.8-1.8); Anion Gap 9.0 mmol/L (3-11); Aspartate Aminotrans (AST/SGOT 44.0 U/L (12-37); Bilirubin, Total 1.2 mg/dL (0.1-1.0); Blood Urea Nitrogen 9.0 mg/dL (8-24); CO2, Blood 24.0 mmol/L (21-32); Calcium, Blood 8.5 mg/dL (8.5-10.1); Chloride, Blood 106.0 mmol/L (98-108); Creatinine, Blood 1.28 mg/dL (0.60-1.20); Globulin, Blood 3.2 g/dL (2.2-4.0); Glucose, Blood 112.0 mg/dL (70-99); Potassium, Blood 3.5 mmol/L (3.5-5.5); Sodium, Blood 135.0 mmol/L (136-145); Total Protein, Blood 6.2 g/dL (6.4-8.2)
[2025-06-22 07:19] VITALS: BP 167/73
[2025-06-22] MEDS ORDERED: HYDR1TAB94 PO (13:01)
--- NOTE | 2025-06-22 13:31 | NUR ---
PT IS BEING DISCHARGED HOME. DISCHARGE INSTRUCTIONS INCLUDING MEDICATION CHANGE DISCUSSED WITH PT. PT VERBALIZED UNDERSTANDING OF DISCHARGE INSTRUCTIONS AND HAS NO CONCERNS OR QUESTIONS AT THIS TIME. PT IS AWAITING A RIDE FROM MOTHER. IV HAS BEEN D/C. WRITTEN PERSCRIPTION PROVIDED
[2025-06-22 14:08] VITALS: BP 120/67
--- NOTE | 2025-06-22 16:01 | NUR ---
PT TRANSFERRED OUT TO RIDE VIA WHEEL CHAIR, ALL PERSONAL ITEMS WITH PT
== END 2025-06-22 16:16 | disposition home or self-care (01) | DRG 418 ==
LOC: ER 11:57 → MEDS 11:58
PROVIDERS: Internal Medicine; Physician Assistant; Surgery; ADMIT Family Medicine
PROC: BF131ZZ Fluoroscopy of Gallbladder and Bile Ducts using Low Osmolar Contrast (ICD-10-PCS; 2025-06-21)
PROC: 0FT44ZZ Resection of Gallbladder, Percutaneous Endoscopic Approach (ICD-10-PCS; principal; 2025-06-21 11:00)
PROC: 0WQF4ZZ Repair Abdominal Wall, Percutaneous Endoscopic Approach (ICD-10-PCS; 2025-06-21 11:00)
DX: K85.10 Biliary acute pancreatitis without necrosis or infection (principal); I48.20 Chronic atrial fibrillation, unspecified; I50.32 Chronic diastolic (congestive) heart failure; E03.9 Hypothyroidism, unspecified; K21.9 Gastro-esophageal reflux disease without esophagitis; N40.0 Benign prostatic hyperplasia without lower urinary tract symptoms; K42.9 Umbilical hernia without obstruction or gangrene; I11.0 Hypertensive heart disease with heart failure; Z86.73 Personal history of transient ischemic attack (TIA), and cerebral infarction without residual deficits; Z79.899 Other long term (current) drug therapy; Z79.82 Long term (current) use of aspirin; I25.2 Old myocardial infarction; Z95.1 Presence of aortocoronary bypass graft; Z95.5 Presence of coronary angioplasty implant and graft
CPT/HCPCS: 36415; 74300; 76705; 80053; 81001; 83690; 85025; 85027; 88304; 93306; 96361; 96374; 96375; 96376; 99285-25; A9270; C1894; G0378; J0360; J0694; J1100; J1650; J1885; J2250; J2270; J2405; J2704; J3010; J7120